=== PATIENT | female | born 1980 | race Caucasian/White ===

== ENCOUNTER 2020-06-05 09:21 | Outpatient (CLI) | payer BC, SELFPAY ==
[2020-06-05 10:34] LABS: Hematocrit 41.4 % (37.0-47.0); Hemoglobin 13.7 g/dL (12.0-15.0); Mean Corpuscular HGB Conc 33.1 g/dl (32-36); Mean Corpuscular Hemoglobin 29.7 pg (26-34); Mean Corpuscular Volume 89.8 fl (80-100); Mean Platelet Volume 10.9 fl (7.4-10.4); Platelet Count Result 190 k/mm3 (150-375); Red Blood Count 4.61 M/mm3 (4.2-5.4); Red Cell Distribution Width 14.1 % (11.5-14.5); White Blood Count 9.3 K/mm3 (4.5-10.0)
[2020-06-07 13:03] LABS: Rapid Plasma Reagin Non-Reactive (NonReactive)
== END 2020-06-05 09:22 | disposition home or self-care (01) ==
PROVIDERS: PCP Internal Medicine; Visit Provider Obstetrics & Gynecology
DX: Z34.93 Encounter for supervision of normal pregnancy, unspecified, third trimester (principal); Z3A.00 Weeks of gestation of pregnancy not specified
CPT/HCPCS: 36415; 85027; 86592; 86850; 86900; 86901

== ENCOUNTER 2020-06-07 08:35 | Inpatient (IN) | payer BC, SELFPAY ==
[2020-06-07] VITALS (46 sets, daily range): BP systolic 67–120; BP diastolic 27–78; PULSE 42–70; RESP 14–18; TEMP 35.7–36.6; O2SAT 96–100; BMI 30.2
--- NOTE | 2020-06-07 08:27 | WPDANESEPPF ---
Anes - Initial Pre Proc Eval Procedure: Operation Date: 06/07/20 10:30 Proposed Procedures p Repeat Section - Adam Rainey MD Date/Time: 06/07/20 08:27 Surgeon: Adam Rainey MD Pre Op Diagnosis: Repeat C section Patient Data Age: 39 Gender: F Height: Weight: Allergies Allergy/AdvReac Type Severity Reaction Status Date / Time cat dander Allergy Unknown Itching Verified 10/05/15 08:04 dog dander Allergy Unknown Itching Verified 10/05/15 08:05 Sulfa (Sulfonamide Allergy Unknown Verified 10/05/15 08:05 Antibiotics) Home Medications Medication Instructions Recorded Confirmed Type PNV cmb#95-ferrous fumarate-FA 1 tablet PO DAILY 05/22/20 05/22/20 History [] cetirizine [Zyrtec] 10 mg PO DAILY 05/22/20 05/22/20 History cranberry 400 mg PO DAILY 05/22/20 05/22/20 History fluticasone furoate [Arnuity 1 inh INHALATION DAILY 05/22/20 05/22/20 History Ellipta] Patient hx anesthesia problems: none Family hx anesthesia problems: none PMFSH Past Medical History Medical History (Updated 06/07/20 @ 08:28 by Israel Oneill DO) Asthma Surgical History Surgical History (Updated 06/07/20 @ 08:28 by Israel Oneill DO) History of Family History Family History (Updated 01/07/16 @ 23:21 by DOCTOR UNKNOWN) Mother Patient's mother is in good health Father Cerebrovascular accident Patient's father is Social History Social History Smoking status: Never smoker Alcohol intake: current Substance use: never Gender identity (if verbalized by the patient): Female Spiritual care concerns: No Anes - Eval Final PreProcedure Day of Procedure 06/07/20 08:27 Patient weight: obese Heart: regular rate and rhythm Lungs: clear to auscultation and normal air movement Airway: Mallampati scale class II Neurological: alert and oriented Last oral intake: >/= 8 hours ASA classification: II Emergent: no Anesthetic plan: proceed Anesthesia type and monitoring: regional spinal and standard monitoring Informed Consent: The patient's anesthetic plan and its attendant risks and benefits were discussed with the patient/family/POA. Questions were solicited and answers provided to the satisfaction of the patient/family/POA.
[2020-06-07] MEDS: LACTATED RINGERS 250 ML 999 ML IVPB (09:42)
--- NOTE | 2020-06-07 10:14 | P.HP_ITS ---
H&P: HPI History of Present Illness Date/Time: 06/07/20 10:14 Chief Complaint: prior csections Narrative: Elham Perez is a 39 year old female @ 39 weeks by lmp c/w ultrasound for an EDC of 06/14/20. Patients complicated by AMA and prior csection times two. Patient reports movement and denies leakage of fluid and contractions. [facility], [facility] Past Medical History Medical History (Updated 06/07/20 @ 10:17 by Adam Rainey MD) Asthma Surgical History Surgical History (Updated 06/07/20 @ 10:19 by Adam Rainey MD) History of Family History Family History Mother Patient's mother is in good health Father Cerebrovascular accident Patient's father is Social History Social History Smoking status: Never smoker Alcohol intake: current Substance use: never Gender identity (if verbalized by the patient): Female Spiritual care concerns: No Meds Home Medications and Allergies Home Medications Medication Instructions Recorded Confirmed Type PNV cmb#95-ferrous fumarate-FA 1 tablet PO DAILY 05/22/20 05/22/20 History [] cetirizine [Zyrtec] 10 mg PO DAILY 05/22/20 05/22/20 History cranberry 400 mg PO DAILY 05/22/20 05/22/20 History fluticasone furoate [Arnuity 1 inh INHALATION DAILY 05/22/20 05/22/20 History Ellipta] Allergies Allergy/AdvReac Type Severity Reaction Status Date / Time cat dander Allergy Unknown Itching Verified 10/05/15 08:04 dog dander Allergy Unknown Itching Verified 10/05/15 08:05 Sulfa (Sulfonamide Allergy Unknown Verified 10/05/15 08:05 Antibiotics) Vital Signs Vital Signs - 24 hr 06/07/20 09:45 06/07/20 09:46 Pulse Rate 66 66 Blood Pressure 120/66 120/65 Exam Const: General: healthy appearing and no acute distress Resp: Effort & Inspection: normal respiratory effort Cardio: Rate: regular rate Rhythm: regular rhythm GI: Other: gravid uterus : Other: cervix closed and thick Assessment and Plan Assessment and plan (1) S/P repeat low transverse : Code(s): Z98.891 - History of uterine scar from previous surgery Status: Acute Assessment and Plan: Patient is scheduled for a repeat csection. Risk and benefits reviewed with patient in detail. Patient agrees to proceed with surgery.
--- NOTE | 2020-06-07 10:27 | WPDHPUPDATE1 ---
History and Physical Update Update Date/Time: 06/07/20 10:27 History and Physical has been reviewed, including an updated exam of the patient. There are NO changes in the patient's condition. Risks, benefits, and alternatives have been discussed and questions answered. Patient agrees to proceed with procedure.
[2020-06-07] MEDS: ceFAZolin 2 GM/D5W 50 ML 2 GM/50 ML BAG IVPB (11:02)
--- NOTE | 2020-06-07 12:00 | PM.OBPRVD ---
OB - Delivery Note Procedure Delivery date: 06/07/20 Procedure: Procedures Operation Date: 06/07/20 10:30 <No data on this case meets the specified criteria> events: Previous Intrapartal events: None Induction method: none Delivery monitor: none Route of delivery: Quantitative Blood Loss (ml): 390 Anesthesia type: Spinal Disposition: PACU Baby Date of : 06/07/20 Time of : 11:23 Weeks of gestation at delivery: 39 gender: Female Weight (pounds): 7 Weight (ounces): 4 presentation: vertex cord vessel description: 2 Vessels, Nuchal Cord and Loose score one minute: 9 score five minutes: 9
[2020-06-07] MEDS: OXYTOCIN 30 UNITS/NS 500 ML 30 UNITS/500 ML BAG 125 UNITS IV CONT (13:57)
[2020-06-07] MEDS: KETOROLAC 30 MG/ML VIAL (*BKC) IV PUSH ×2 (14:04→19:55)
--- NOTE | 2020-06-07 14:20 | PC.NURSE ---
Patient transferred to post room #292 per stretcher from labor and delivery. Support person present. Oriented to unit, room, information board, rooming in, admission packet and security measures. Patient verbalizes understanding.
[2020-06-07] MEDS: DEXTROSE 5%/0.45% SOD CHL 1,000 ML 125 ML IV CONT (18:25)
[2020-06-07] MEDS: diphenhydrAMINE HCl INJ 50 MG/ML VIAL 25 MG IV PUSH (22:16)
[2020-06-08] MEDS: KETOROLAC 30 MG/ML VIAL (*BKC) IV PUSH (02:26)
[2020-06-08 04:35] VITALS: BP 110/65; PULSE 68; RESP 14; TEMP 36.3; O2SAT 98
[2020-06-08 05:07] LABS: Hematocrit 35.7 % (37.0-47.0); Hemoglobin 11.9 g/dL (12.0-15.0)
--- NOTE | 2020-06-08 07:49 | WPDANLDPN2 ---
Anes-Prog Note L&D Date/Time: 06/08/20 07:49 Comfortable throughout: section Neuraxial method: spinal Epidural/Spinal procedure site: clean & non-tender Neuro status: Neuro function grossly intact. Cardiovascular status: normal Respiratory status: normal Airway patency: baseline Mental status: baseline Post-Op hydration status: normal Vital Signs: Last Vital Signs Temp 36.3 C L 06/08/20 04:35 Pulse 68 06/08/20 04:35 Resp 14 06/08/20 04:35 BP 110/65 06/08/20 04:35 Pulse Ox 98 06/08/20 04:35 Pain score (VAS): no complaints I/O: Intake & Output 06/07/20 06/07/20 06/08/20 15:59 23:59 07:59 Intake Total 1550 1200 Output Total 157 623 3169 Balance 1230 250 -1750 Post-procedural complaints: none Patient feedback: Patient satisfied with anesthetic care.
--- NOTE | 2020-06-08 07:50 | WPDANLDNPN2 ---
Anes-Prog Note L&D-Neuraxial Date/Time: 06/08/20 07:50 Neuraxial medications: intrathecal PF morphine Opiod-related complaints: none Patient feedback: Patient satisfied with post-operative pain management.
--- NOTE | 2020-06-08 07:51 | PM.OBPNVD ---
OB - PN: Subj Subjective Date/time seen: 06/08/20 07:51 Patient comments: no complaints and pain well controlled baby status: doing well OB - PN: Obj Data Labs CBC & Chem 7: 06/08/20 04:45 Labs: Laboratory Results - last 24 hr 06/08/20 04:45 Hgb 11.9 L Hct 35.7 L OB - PN A/P Plan day: 1 Plan: routine care Time Spent With Patient Time: Total time spent is greater than 50% in coordination of care (as documented) at patient's floor/unit and/or counseling patient: Exam Narrative: Exam Narrative: inc c/d/i : Bimanual exam- vagina & uterus: other (Uterus firm, nt @U)
[2020-06-08] MEDS: MULTIVIT/MIN/PREN/FOL AC/IRON TABLET 1 TAB PO (08:49)
[2020-06-08] MEDS: DOCUSATE SODIUM 100 MG CAPSULE PO ×2 (08:49→17:52)
[2020-06-08] MEDS: IBUPROFEN 600 MG TABLET PO ×3 (08:49→22:55)
[2020-06-08] MEDS: POLYSACCHARIDE IRON COMPLEX 150 MG CAPSULE PO ×2 (08:49→17:52)
[2020-06-08 08:55] VITALS: BP 132/61; PULSE 78; RESP 18; TEMP 36.3; O2SAT 100
--- NOTE | 2020-06-08 09:16 | PM.PROC ---
Procedure Note - Detailed Date of procedure: 06/08/20 Pre-op diagnosis: Repeat C section Post-op diagnosis: other Procedure performed: repeat LTCS Description of procedure: Patinet was taking to the operating room with IV running. Spinal anesthesia performed and patient was prepared and draped in a normal sterile fashion. Patient was placed in a lithotomy position with leftward tilt. A pfannensteil incision was made with a scalpel and carried dowwn to the underlying layer of fascia. The Fascia was incised in the midline and extended bilaterally with Vásquez scissors. the superior aspect of the incision was grasped with Toy clamps and the fascia was dissected off the rectus muscle. The inferior aspect of the fascia was grasped and dissected off the rectus muscle. The muscled=s were sejparated in the midline. the peritoneum was entered bluntly and the bladder blade inserted and the vesicouterine peritoneum was grasped wtih peons and entered sharply and bladder flap created. the bladder blade was reinserted . the lower uterine segment was thin and transverse incisionswas made and extended bluntly. The fetus was delivered atraumaticallly and noted two nuchal cords times one and stained cord with two vessels. the placenta deleiverd spontaneously after obtaineing cord blood and gases. the uterus was exteriorised and cleared of clotts and debris. The uterine incision was closed with o mononcryl in a running lock fashion in two layer imbricating the second. A figure of eiight stitch was placed in left corner for hemostasis,. the uterus was returned to abdomen. some oosing noted at bladder flap. Hemoderm appled to the area and surgiseall over incision.. the gutters cleared of clots. the muscle was hemostatic and fascia closed with o vicryl. the subcutaneous tissue closed with 3-0 plain gut and skin closed with uli needle. Anesthesia: spinal Surgeon: Adam Rainey MD Estimated blood loss (mL): 390 Urine output (mL): 200 Drains: Yes Packing: No Pathology: yes Complications: None Condition: stable Disposition: PACU Findings: thin lower uterine segment
[2020-06-08] MEDS: HYDROcodone/acetaminophen (*CRX) 5-325 MG TABLET 1 TAB PO ×4 (12:10→22:55)
[2020-06-08 19:35] VITALS: BP 108/67; PULSE 70; RESP 16; TEMP 36.6
[2020-06-09] MEDS: HYDROcodone/acetaminophen (*CRX) 5-325 MG TABLET 1 TAB PO (03:15)
--- NOTE | 2020-06-09 06:56 | PM.OBPNVD ---
OB - PN: Subj Subjective Date/time seen: 06/09/20 06:56 Patient comments: no complaints and pain well controlled baby status: doing well OB - PN: Obj Data Labs CBC & Chem 7: 06/08/20 04:45 OB - PN A/P Plan day: 2 Plan: routine care, discharge home and other (plans OC's) Time Spent With Patient Time: Total time spent is greater than 50% in coordination of care (as documented) at patient's floor/unit and/or counseling patient: Exam Narrative: Exam Narrative: inc c/d/i : Bimanual exam- vagina & uterus: other (Uterus firm, nt @U)
[2020-06-09] MEDS: HYDROcodone/acetaminophen (*CRX) 10-325 MG TABLET 1 TAB PO (08:24)
[2020-06-09] MEDS: DOCUSATE SODIUM 100 MG CAPSULE PO (08:24)
[2020-06-09] MEDS: IBUPROFEN 600 MG TABLET PO (08:25)
[2020-06-09] MEDS: MULTIVIT/MIN/PREN/FOL AC/IRON TABLET 1 TAB PO (08:25)
[2020-06-09] MEDS: LANOLIN (LANSINOH) 7.5 GM CREAM 1 APPLIC TOPICAL (08:25)
[2020-06-09] MEDS: SIMETHICONE 80 MG TAB.CHEW PO (08:44)
[2020-06-09 08:45] VITALS: BP 114/71; PULSE 75; RESP 16; TEMP 36.6; O2SAT 99
[2020-06-09 09:46] VITALS: PULSE 75; RESP 16; O2SAT 99
--- NOTE | 2020-06-09 10:58 | PC.NURSE ---
Consulted with patient, reviewed infant feeding cues, frequencies, duration of feedings, feeding elimination flow sheet, and signs of adequate intake. Demonstrated stimulation techniques to wake infant for feeding. Assisted with infant to breast. Reviewed positioning/alignment, holding breast and asymmetrical latch on. Infant was able to latch correctly. Infant nursed eagerly, with steady draws and frequent swallowing noted. Reviewed signs of a correct latch, effective nursing and suck swallow ratio. Infant was able to maintain latch without discomfort to mother. Nipple care reviewed. Instructed mother to call out for RN assistance if she is unable to latch for feeding or she has discomfort with nursing. Instructed feeding should be initiated three hours from start of last feeding or if feeding cues are noted before. Mother voiced understanding of information shared. Mother verbalizes she is able to independently latch with appropriate positioning/alignment. She has minimal nipple discomfort, is feeding as required and waking to feed if needed. Infant has had 12 effective feedings in the past 24 hours, and is currently meeting outcomes for weight, output, jaundice and feeding frequencies. Mother states she feels confident to continue effective at home. Reviewed transition to breast milk, signs of adequate intake, and engorgement/relief. Instructed to call ICP if intake/output less than required. Reviewed community resources on the [facility] website and in the Mom/Baby guide. Information on outpatient services provided. Mother has no further questions at this time.
[2020-06-10 11:35] VITALS: BP 114/70; PULSE 64; RESP 20; O2SAT 100
--- NOTE | 2020-06-21 08:19 | PM.OBDSVD ---
DS: Admitting Diagnosis Admitting Diagnosis Admitting Diagnosis: repeat csection DS: Discharge Diagnosis Discharge Diagnosis (1) S/P repeat low transverse : Code(s): Z98.891 - History of uterine scar from previous surgery Status: Acute OB - DS: Summary OB Procedures : Ultrasound OB Procedures Intrapartum: OB Procedures: : None Peripartum Data Procedures: Procedures Operation Date: 06/07/20 10:30 Actual Procedures Side Surgeon p Repeat Section Adam Rainey MD Time Spent with Patient Time attestation: Total time spent providing and/or coordinating discharge services: DS: Data Data Completed and Pending Completed studies during hospitalization: Pending at discharge 06/07/20 12:29 Surgical [PTH] Routine Discharge Plan Discharge Attending physician on discharge: Daina Rainey Consulting providers: Israel Onelil Discharging Clinician: Nereida Hill Patient Disposition: Home, Self-Care Activity: may shower, may drive after 2 weeks and pelvic rest Diet: regular Wound Care Instructions: incision open to air Discharge Instructions: Education: Mom and Baby Guide Given to: Mother Follow-Up: Call your delivering provider's office for an appointment to be seen in: 1 Week for incision check and then 6 weeks for regular exam Mom and baby should come to the [facility] for the follow-up appointment. Appointment Date/Time: June 10, 2020 at 11:00 am What to expect at your follow-up visit: Blood Pressure Check Physical Assessment Call [phone] if you are unable to keep your appointment time. BREAST CARE: * Wear a snug supportive bra. * For engorgement discomfort: Breast Feeding: * Apply warm moist washcloths * Express milk as needed to relieve engorgement * Wear loose clothing * For sore nipples: * Identify correct latch-on * Apply warm moist washcloths before and after nursing * Air dry nipples after nursing * May apply Lansinoh cream to nipples ABDOMINAL INCISION: (if applicable) * Allow incision to air dry * Do NOT use lotions for powders on your incision * When showering, allow soap and water to run over the incision, but do not wash incision EPISIOTOMY/PERINEAL CARE: * Until bleeding stops, use your javier bottle after urinating * Change your pad frequently throughout the day * No tub baths until seen by your physician - You may shower ACTIVITY: * Rest as much as possible. * Do not exercise or lift anything heavier than your baby (such as laundry or other children.) * Avoid stairs or driving as much as possible. * Do not put anything into the vagina. No douching, tampons, or sexual activity until seen by physician. NOTIFY PHYSICIAN IF YOU HAVE ANY QUESTIONS OR IF ANY OF THE FOLLOWING SYMPTOMS OCCUR: * If your incision becomes red, swollen, or more painful than what you have experienced in the hospital. * If your vaginal bleeding becomes foul smelling. * If your vaginal bleeding becomes more heavy than a period or if your bleeding changes from pink to bright red. However, you may pass an occasional walnut-sized clot once or twice for the first week . * If you experience a sharp, shooting pain in your calves. * If you discover a hard, reddened area on your breast or if you experience flu-like symptoms. DIET: * Eat regular, well-balanced meals. * Drink plenty of fluids daily. If , drink to thirst. Stand Alone Forms: General Discharge Information Follow-up/Referrals: Adam Rainey MD [Physician] - 1 Week Discharge Medications: New norethindrone (contraceptive) 0.35 mg tablet 0.35 mg PO DAILY Qty: 84 RF: 3 hydrocodone-acetaminophen 5-325 mg Tablet 1 tablet PO Q3H PRN (Reason: Moderate Pain (4-6)) Qty: 20 RF: 0 Continued
== END 2020-06-09 11:45 | disposition home or self-care (01) | DRG 788 ==
LOC: ANHOB2 06-09 09:53 → ANHOBPP 06-10 13:04
PROVIDERS: Admitting Provider Obstetrics & Gynecology; PCP Internal Medicine; Visit Provider Obstetrics & Gynecology Gynecology
PROC: (CPT 59514; principal; 2020-06-07 10:30)
DX: O34.211 Maternal care for low transverse scar from previous cesarean delivery (principal); Z37.0 Single live birth; Z3A.39 39 weeks gestation of pregnancy; O69.81X0 Labor and delivery complicated by cord around neck, without compression, not applicable or unspecified; O99.52 Diseases of the respiratory system complicating childbirth; J45.909 Unspecified asthma, uncomplicated; O99.214 Obesity complicating childbirth; E66.9 Obesity, unspecified
CPT/HCPCS: 36415; 85014; 85018; 85027; 86592; 86850; 86900; 86901; 88307; A9270; J0131; J0330; J0690; J1100; J1200; J1885; J2274; J2370; J2405; J2590; J2704; J2710; J7120

== ENCOUNTER 2022-06-27 17:10 | Outpatient (CLI) | payer BC, SELFPAY ==
--- NOTE | ~2022-06-27 | MM_ITS ---
EXAMINATION: MM screening nico BI w rolf HISTORY: Screening mammogram TECHNIQUE: Craniocaudal and mediolateral oblique 3-D tomosynthesis images were obtained and synthetic 2-D images were generated. CAD analysis was submitted and interpreted. COMPARISON: No prior mammogram is available for comparison at this institution. BREAST PARENCHYMAL COMPOSITION: There are scattered areas of fibroglandular density. FINDINGS: There is no evidence of suspicious mass, calcification, or architectural distortion to sugg est malignancy in either breast. There has been no suspicious interval change. IMPRESSION: 1. No mammographic evidence of malignancy. 2. Recommend routine screening mammography in one year. BI-RADS Category 1: Negative Reviewed, dictated and finalized at location A. TRIC APPLIANCE INSTALLER
== END 2022-06-27 17:11 | disposition home or self-care (01) ==
PROVIDERS: Visit Provider Nurse Practitioner
DX: Z12.31 Encounter for screening mammogram for malignant neoplasm of breast (principal)
CPT/HCPCS: 77063; 77067

== ENCOUNTER 2023-07-24 15:43 | Outpatient (CLI) | payer BC, SELFPAY ==
--- NOTE | ~2023-07-24 | MM_ITS ---
EXAMINATION: MM screening nico BI w rolf HISTORY: Screening mammogram TECHNIQUE: Craniocaudal and mediolateral oblique 3-D tomosynthesis images were obtained and synthetic 2-D images were generated. CAD analysis was submitted and interpreted. COMPARISON: 06/27/2022 BREAST PARENCHYMAL COMPOSITION: There are scattered areas of fibroglandular density. FINDINGS: No suspicious mass, calcification, or architectural distortion are identified in either marcus ast to suggest malignancy. There has been no suspicious interval change. IMPRESSION: 1. No mammographic evidence of malignancy. 2. Recommend routine screening mammography in one year. BI-RADS Category 1: Negative Reviewed, dictated and finalized at location A. DRY SUPERINTENDANT
== END 2023-07-24 15:44 | disposition home or self-care (01) ==
PROVIDERS: PCP Nurse Practitioner Family; Visit Provider Nurse Practitioner
DX: Z12.31 Encounter for screening mammogram for malignant neoplasm of breast (principal)
CPT/HCPCS: 77063; 77067

== ENCOUNTER 2024-07-29 10:11 | Outpatient (CLI) | payer BC, SELFPAY ==
--- NOTE | ~2024-07-29 | MM_ITS ---
EXAMINATION: MM screening nico BI w rolf HISTORY: Screening TECHNIQUE: Craniocaudal and mediolateral oblique 3-D tomosynthesis images were obtained and synthetic 2-D images were generated. CAD analysis was submitted and interpreted. COMPARISON: Comparison to multiple prior studies sequentially, with oldest reviewed study dated 06/27. BREAST PARENCHYMAL COMPOSITION: Not dense: There are scattered areas of fibroglandular density. FINDINGS: There is no evidence of suspicious mass, calcification, or architectural distortion to sugg est malignancy in either breast. There has been no suspicious interval change. IMPRESSION: 1. No mammographic evidence of malignancy. 2. Recommend routine screening mammography in one year. BI-RADS Category 1: Negative Reviewed, dictated and finalized at location B. T DRIVER
== END 2024-07-29 10:12 | disposition home or self-care (01) ==
LOC: MICIMG 10:11
PROVIDERS: PCP Nurse Practitioner Women's Health; Visit Provider Nurse Practitioner Women's Health
DX: Z12.31 Encounter for screening mammogram for malignant neoplasm of breast (principal)
CPT/HCPCS: 77063; 77067